=== PATIENT | female | born 1960 | race Caucasian/White ===

== ENCOUNTER 2024-10-29 02:13 | Outpatient (CLI) | payer MEDICARE, SELFPAY ==
--- NOTE | 2024-10-29 08:19 | DI.US_ITS ---
APPROVED REPORT EXAM: Comprehensive 2D, Doppler, and color-flow Echocardiogram Patient Location: Out-Patient Crankshaft Grinder: Noemi Pierce RDCS (AE) Indications: Cardiac clearance, preprocedural examination, Essential HTN, Hyperlipidemia Other Information Study Quality: Adequate. Technically limited study due to body habitus smoker. Conclusion Normal left ventricular wall thickness and chamber size. Ejection fraction is 55%. Wall motion is n ormal Normal right ventricular size and function Both atria are normal in size There is no structural or hemodynamically significant valvular disease Estimated right ventricular systolic pressure is 25 mmHg Wall motion Left Ventricle The left ventricle is normal size. The left ventricular systolic function is normal. The left ventric ular ejection fraction is within the normal range. There is normal left ventricular wall thickness. T here is normal LV segmental wall motion. There is no ventricular septal defect visualized. LVEF is 55 %. Right Ventricle The right ventricle is normal size. The right ventricular systolic function is normal. Atria The left atrium size is normal. The right atrium size is normal. The interatrial septum is intact wit h no evidence for an atrial septal defect. Aortic Valve The aortic valve is normal in structure. Aortic valve is trileaflet. There is no aortic valvular sten osis. No aortic regurgitation is present. Mitral Valve The mitral valve is normal in structure. No evidence of mitral valve stenosis. Trace mitral regurgita tion. Tricuspid Valve The tricuspid valve is normal in structure. There is no tricuspid valve stenosis. Trace tricuspid reg urgitation. The RVSP is 25.7mmHg. Pulmonic Valve The pulmonary valve is normal in structure. There is no pulmonic valvular stenosis. There is no pulmo rogelio valvular regurgitation. Great Vessels The aortic root is normal in size. The ascending aorta is normal in size. Aortic arch is not well vis ualized. IVC is normal in size and collapses >50% with inspiration. Pericardium There is no pericardial effusion. 2D Dimensions IVSD d PLAX 0.90 cm F: 0.6-1.0 Ao Root d 2.57 cm F: 2.7 - 3.3 LVPW d PLAX 0.90 cm F: 0.6 - 1.0 Ao Asc Diam d 3.01 cm F: 2.3 - 3.1 LVID d PLAX 4.00 cm F: 3.8 - 5.2 LVDs 2.90 cm F: 2.2 - 3.5 LV EF Teichholz 54.6 % FS 27.90 % LV EDV (Teich) 68.2 mL LV ESV (Teich) 30.9 mL M-Mode TAPSE 1.51 cm (M/F) >1.7 Auto EF LV EDV A4C 72.8 mL LV EDV A2C 87.7 mL LV EDV BP 81.9 mL LV ESV A4C 34.7 mL LV ESV A2C 42.2 mL LV ESV BP 38.0 mL LVEF(%) A4C 52.3 % LVEF(%) A2C 51.9 % LVEF(%) BP 53.6 % LV SV A4C 38.1 ml LV SV A2C 45.5 ml LV SV BP 43.9 ml LV CO A4C 2.7 L/min LV CO A2C 3.4 L/min LV CO BP 3.0 L/min HR A4C 71.15 BPM HR A2C 73.93 BPM LV EDV Index (BP) LA Volume LA Length A4C 4.7 cm LA Length A2C 4.6 cm LA Area A4C s 15.18 cm2 LA Area A2C s 15.66 cm2 LA Vol A4C A-L 41.74 mL LA Vol A2C A-L 45.28 mL LA Vol Biplane A-L 43.9 mL LA Vol/BSA A4C A-L LA Vol/BSA A2C A-L LA Vol/BSA BP A-L 23.5 mL/m2 LA Vol A4C MOD 39.5 mL LA Vol A2C MOD 43.2 mL LA Vol BP MOD 41.3 mL RA Volume RA Area A4C 8.3 cm2 RA ESV A4C (A-L) 14.3mL RA Vol/BSA A4C A-L RA Length A4C 4.1 cm RA ESV A4C (MOD) 14.0mL LV Diastology MV E' medial 0.077 (>0.07 m/s) MV E Vmax 0.67 (0.4-1.3 m/s) MV E/E' MED 8.70 (<14) MV A Vmax 0.85 (0.4-1.3 m/s) MV E' lateral 0.092 (>0.1 m/s) E/A Ratio 0.8 MV E/E' LAT 7.27 (<14) MV E' Average 0.085 m/s MV E/E'(average) 7.92 Aortic Valve AoV Vmax 1.28 m/s LVOT Vmax 1.15 m/s AoV Peak Grad 6.5 mmHg LVOT Peak Grad 5.3 mmHg AoV Area (Vmax) 2.64 cm2 LVOT VTI 0.187 m AoV VTI 0.244 m LVOT Mean Grad 2.4 mmHg AoV Mean Fernando. 0.85 m/s LVOT SV 54.81 mL AoV Mean Grad 3.4 mmHg LVOT Diam s 1.90 cm AoV Area (VTI) 2.25 cm2 AV Regurg Peak Gr. 6.51 mmHg Velocity Ratio 0.90 Mitral Valve MV DT 263 (160-240 msec) MV Vmax TIPS 0.80 m/s MV Mean Grad 1.1 (<2mmHg) MV VTI 0.227 m Pulmonary Valve PV Vmax 0.87 (0.5-1.5 m/s) RVOT Vmax 0.74 m/s PV Peak Grad 3.0 mmHg RVOT Peak Gr. 2.2 mmHg PV Mean Fernando 0.63 m/s RVOT VTI 0.151 m PV Mean Grad 1.8 mmHg RVOT Mean Gr. 1.2 mmHg Tricuspid Valve RA Pressure 3.00 mmHg TR Vmax 2.38 m/s TV S' 0.12 m/s TR Peak Grad 22.7 mmHg RVSP (TR) 25.7 mmHg
== END 2024-10-29 02:33 ==
LOC: DI 02:14
PROVIDERS: PCP Nurse Practitioner Adult Health; Visit Provider Nurse Practitioner Family
DX: Z01.818 Encounter for other preprocedural examination (principal); I10 Essential (primary) hypertension
CPT/HCPCS: 93306